=== PATIENT | male | born 1935 | race Caucasian/White ===

== ENCOUNTER 2020-07-18 11:23 | Emergency (ER) | payer MEDICARE, BC ==
[2020-07-18 12:16] LABS: CHLORIDE,CL 100 mmol/L (98-107); SODIUM,NA 135 mmol/L (136-145)
--- NOTE | 2020-07-18 12:51 | EDM.PDOC ---
ED HPI GENERAL MEDICAL PROBLEM - General Chief Complaint: Neurological Problem Stated Complaint: syncope Time Seen by Provider: 07/18/20 11:36 Source of Information: Reports: Patient, EMS, Family History Limitations: Reports: Other (Patient does not recall having the episode at home) - History of Present Illness INITIAL COMMENTS - FREE TEXT/NARRATIVE: Patient sent here for evaluation after having an episode at home where he became distant/would not focus on family/ and at times rolled eyes up/back and was minimally responsive. 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 Is on Eliquis. No SOB/chest pain. Family member did take patient's pulse and counted out a pulse of 40. BP also low at that time. Was having usual day up until that time. Sitting at table eating/taking daily meds when this happened. No other reported change. Patient says he feels fine now. No new complaints during ROS. - Related Data Allergies Allergy/AdvReac Type Severity Reaction Status Date / Time duloxetine Allergy Other Verified 07/18/20 12:37 Home Meds: Home Meds Apixaban [Eliquis] 5 mg PO BID 07/18/20 [History] Aspirin [Halfprin] 81 mg PO DAILY 07/18/20 [History] Carbidopa/Levodopa [Carbidopa-Levo ER 25-100] 1 each PO DAILY@0700,1130,1630 07/18/20 [History] Carbidopa/Levodopa [Carbidopa-Levo ER 50-200] 1 tab PO DAILY@02,19 07/18/20 [History] Diclofenac Sodium [Voltaren 1% Gel] 1 applic TOP QID PRN 07/18/20 [History] Donepezil HCl [Aricept] 10 mg PO DAILY 07/18/20 [History] Fish Oil/[place]-3 Fatty Acids [Fish Oil 1,000 MG] 1 each PO DAILY 07/18/20 [History] Levodopa [Inbrija] 42 mg IH 5XDAY PRN 07/18/20 [History] Levothyroxine [Synthroid] 100 mcg PO ACBREAKFAST 07/18/20 [History] Multivitamin [Multi-Vitamin Daily] 1 each PO DAILY 07/18/20 [History] Sertraline [Zoloft] 50 mg PO DAILY 07/18/20 [History] allopurinoL [Zyloprim] 100 mg PO DAILY 07/18/20 [History] atorvaSTATin [Lipitor] 40 mg PO BEDTIME 07/18/20 [History] carvediloL [Carvedilol] 3.125 mg PO DAILY 07/18/20 [History] levETIRAcetam [Keppra] 500 mg PO BID 07/18/20 [History] Past Medical History HEENT History: Reports: Hard of Hearing Cardiovascular History: Reports: Blood Clots/VTE/DVT, High Cholesterol, Hypertension Musculoskeletal History: Reports: Arthritis, Back Pain, Chronic, Gout, Osteoarthritis Neurological History: Reports: Parkinson's Psychiatric History: Reports: Dementia, Depression ED ROS GENERAL - Review of Systems Review Of Systems: Comprehensive ROS is negative, except as noted in HPI. HEENT: Reports: Hearing Loss ED EXAM, GENERAL - Physical Exam Exam: See Below Exam Limited By: No Limitations General Appearance: Alert, WD/WN, No Apparent Distress Eye Exam: Bilateral Eye: EOMI, PERRL (small pupils/3mm) Ears: Normal External Exam, Hearing Grossly Normal (is hard of hearing and does not have hearing aids in place) Nose: No: Nasal Deformity, Nasal Swelling, Nasal Drainage Throat/Mouth: Normal Lips, Normal Voice, No Airway Compromise Head: Atraumatic, Normocephalic Neck: Supple Respiratory/Chest: No Respiratory Distress, Lungs Clear, Normal Breath Sounds, No Accessory Muscle Use Cardiovascular: Normal Peripheral Pulses, Regular Rate, Rhythm, No Edema, No Murmur GI/Abdominal: Normal Bowel Sounds, Soft, Non-Tender, No Distention (Male) Exam: Deferred Rectal (Males) Exam: Deferred Back Exam: No: Muscle Spasm Extremities: Non-Tender, No Pedal Edema, Normal Capillary Refill Neurological: Alert, Oriented, Other (equal tone/strength bilaterally) Psychiatric: Normal Affect, Normal Mood Skin Exam: Warm, Dry, Intact #1 Interpretation EKG Date: 07/18/20 Time: 11:44 Rhythm: NSR Rate (Beats/Min): 66 [place]: Normal P-Wave: Present QRS: Normal ST-T: Normal QT: Normal (Occ. PVCs) Course - Vital Signs Last Recorded V/S: Last Vital Signs Temp 36.3 C 07/18/20 11:52 Pulse 73 07/18/20 11:52 Resp 15 07/18/20 11:52 BP 113/50 L 07/18/20 11:52 Pulse Ox 96 07/18/20 11:52 - Orders/Labs/Meds Orders: Active Orders 24 hr Category Date Time Status EKG Documentation Completion [RC] ASDIRECTED Care 07/18/20 11:35 Active Head wo Cont [CT] Stat Exams 07/18/20 11:29 Taken UA W/MICROSCOPIC [URIN] Stat Lab 07/18/20 11:34 Ordered Labs: Laboratory Tests 07/18/20 07/18/20 07/18/20 Range/Units 11:45 11:45 11:45 WBC 7.3 (4.0-10.2) K/uL RBC 3.87 L (4.33-5.41) M/uL Hgb 12.5 L (13.1-16.8) g/dL Hct 37.0 L (39.0-49.0) % MCV 95.6 (84.0-98.0) fL MCH 32.3 (28.2-33.3) pg MCHC 33.8 (31.7-36.0) g/dL RDW 12.6 (11.2-14.1) % Plt Count 255 (150-350) K/uL Neut % (Auto) 58.6 (45.0-80.0) % Lymph % (Auto) 25.6 (10.0-50.0) % [place] % (Auto) 12.6 (2.0-14.0) % Eos % (Auto) 2.9 (0.0-5.0) % Baso % (Auto) 0.3 (0.0-2.0) % Neut # (Auto) 4.29 (1.40-7.00) K/uL Lymph # (Auto) 1.87 (0.50-3.50) K/uL [place] # (Auto) 0.92 (0.00-1.00) K/uL Eos # (Auto) 0.21 (0.00-0.50) K/uL Baso # (Auto) 0.02 (0.00-0.20) K/uL D-Dimer, Quantitative (0-400) ng/mL Sodium 135 L (136-145) mmol/L Potassium 4.2 (3.5-5.1) mmol/L Chloride 100 (98-107) mmol/L Carbon Dioxide 26.6 (21.0-32.0) mmol/L BUN 19 H (7-18) mg/dL Creatinine 0.91 (0.51-1.17) mg/dL Est Cr Clr Drug Dosing TNP Estimated GFR (MDRD) > 60 mL/min Glucose 120 H (70-99) mg/dL Lactic Acid 1.5 (0.4-2.0) mmol/L Calcium 9.3 (8.5-10.1) mg/dL Magnesium 1.8 (1.8-2.4) mg/dL Total Bilirubin 0.4 (0.2-1.0) mg/dL AST 24 (15-37) U/L ALT 15 (12-78) U/L Alkaline Phosphatase 63 (46-116) IU/L Troponin I 0.000 (0.000-0.056) ng/mL NT-Pro-B Natriuret Pep 61 (0-125) pg/mL Total Protein 6.8 (6.4-8.2) g/dL Albumin 3.8 (3.4-5.0) g/dL 07/18/20 Range/Units 11:45 WBC (4.0-10.2) K/uL RBC (4.33-5.41) M/uL Hgb (13.1-16.8) g/dL Hct (39.0-49.0) % MCV (84.0-98.0) fL MCH (28.2-33.3) pg MCHC (31.7-36.0) g/dL RDW (11.2-14.1) % Plt Count (150-350) K/uL Neut % (Auto) (45.0-80.0) % Lymph % (Auto) (10.0-50.0) % [place] % (Auto) (2.0-14.0) % Eos % (Auto) (0.0-5.0) % Baso % (Auto) (0.0-2.0) % Neut # (Auto) (1.40-7.00) K/uL Lymph # (Auto) (0.50-3.50) K/uL [place] # (Auto) (0.00-1.00) K/uL Eos # (Auto) (0.00-0.50) K/uL Baso # (Auto) (0.00-0.20) K/uL D-Dimer, Quantitative < 100 (0-400) ng/mL Sodium (136-145) mmol/L Potassium (3.5-5.1) mmol/L Chloride (98-107) mmol/L Carbon Dioxide (21.0-32.0) mmol/L BUN (7-18) mg/dL Creatinine (0.51-1.17) mg/dL Est Cr Clr Drug Dosing Estimated GFR (MDRD) mL/min Glucose (70-99) mg/dL Lactic Acid (0.4-2.0) mmol/L Calcium (8.5-10.1) mg/dL Magnesium (1.8-2.4) mg/dL Total Bilirubin (0.2-1.0) mg/dL AST (15-37) U/L ALT (12-78) U/L Alkaline Phosphatase (46-116) IU/L Troponin I (0.000-0.056) ng/mL NT-Pro-B Natriuret Pep (0-125) pg/mL Total Protein (6.4-8.2) g/dL Albumin (3.4-5.0) g/dL - Re-Assessments/Exams Free Text/Narrative Re-Assessment/Exam: 07/18/20 15:51 CT/EKG/Labs performed. Overall unremarkable. No return of symptoms during ER stay. Patient continued to feel "normal". Given that family noted the low BP and slow heart rate, previous episode may have been cardiac in origin. Observation stay offered to family and patient. He wished to go home. Family is to continue to observe for changes. If any similar episodes are noted they are to check BP and pulse. If this repeats itself patient may benefit from Holter to look for arrhythmias/bradycardia. Is on Carvedilol. Will have family hold that medication if another episode is observed. To follow up otherwise as needed if he has no recurrence and continues to do well. Departure - Departure Time of Disposition: 12:47 Disposition: Home, Self-Care 01 Condition: Good Clinical Impression: Syncope Qualifiers: Syncope type: unspecified Qualified Code(s): R55 - Syncope and collapse - Discharge Information *PRESCRIPTION DRUG MONITORING PROGRAM REVIEWED*: Not Applicable *COPY OF PRESCRIPTION DRUG MONITORING REPORT IN PATIENT GARRET: Not Applicable Instructions: Bradycardia, Adult, Hypotension, Syncope Referrals: PCP,Unknown [Primary Care Provider] - Forms: ED Department Discharge Additional Instructions: Observe closely over the next days and see if symptoms return or if other new symptoms develop. Hold Carvedilol if symptoms return as that can cause low blood pressure and heart rate. Follow up as needed if you observe any problems. Take blood pressure and pulse if you start experiencing the symptoms again. Further evaluation such as Holter monitor may need to be considered if symptoms return. Sepsis Event Note (ED) - Evaluation Sepsis Screening Result: No Definite Risk - Focused Exam Vital Signs: Vital Signs Temp Pulse Resp BP Pulse Ox 07/18/20 11:52 36.3 C 73 15 113/50 L 96 - My Orders Last 24 Hours: My Active Orders 07/18/20 11:29 Head wo Cont [CT] Stat 07/18/20 11:34 UA W/MICROSCOPIC [URIN] Stat 07/18/20 11:35 EKG Documentation Completion [RC] ASDIRECTED - Assessment/Plan Last 24 Hours: My Active Orders 07/18/20 11:29 Head wo Cont [CT] Stat 07/18/20 11:34 UA W/MICROSCOPIC [URIN] Stat 07/18/20 11:35 EKG Documentation Completion [RC] ASDIRECTED
== END 2020-07-18 13:05 | disposition home or self-care (01) ==
LOC: LL.ED 11:23
DX: R55 Syncope and collapse (principal); E78.00 Pure hypercholesterolemia, unspecified; I10 Essential (primary) hypertension; M10.9 Gout, unspecified; F03.90 Unspecified dementia, unspecified severity, without behavioral disturbance, psychotic disturbance, mood disturbance, and anxiety; G20 Parkinson's disease; M19.90 Unspecified osteoarthritis, unspecified site; Z79.82 Long term (current) use of aspirin; Z79.01 Long term (current) use of anticoagulants; Z88.8 Allergy status to other drugs, medicaments and biological substances; Z79.899 Other long term (current) drug therapy; Z86.718 Personal history of other venous thrombosis and embolism
CPT/HCPCS: 36415; 70450; 80053; 83605; 83735; 83880; 84484; 85025; 85379; 93005; 93010; 99284; 99285-25

== ENCOUNTER 2023-11-29 15:26 | Emergency (ER) | payer BC, MEDICARE ==
[2023-11-29] MEDS: methylPREDNISolone Sodium Succinate 125 MG/2 ML SDV IVPUSH ONE (15:37)
[2023-11-29] MEDS: Albuterol/Ipratropium 3.0-0.5 MG/3 ML Neb Soln NEB ONE (15:39)
[2023-11-29] MEDS ORDERED: Sodium Chloride 0.9% 10 ML Syringe FLUSH PRN (15:42)
[2023-11-29 15:47] LABS: BASOPHILS ABSOLUTE AUTO 0.01 K/uL (0.00-0.20); BASOPHILS PERCENT AUTO 0.3 % (0.0-2.0); EOSINOPHILS ABSOLUTE AUTO 0.01 K/uL (0.00-0.50); EOSINOPHILS PERCENT AUTO 0.3 % (0.0-5.0); HEMATOCRIT 36.6 % (39.0-49.0); HEMOGLOBIN 12.3 g/dL (13.1-16.8); LYMPHOCYTES ABSOLUTE AUTO 0.22 K/uL (0.50-3.50); LYMPHOCYTES PERCENT AUTO 5.5 % (10.0-50.0); MEAN CORPUSCULAR HEMOGLOBIN 32.5 pg (28.2-33.3); MEAN CORPUSCULAR HGB CONC 33.6 g/dL (31.7-36.0); MEAN CORPUSCULAR VOLUME 96.8 fL (84.0-98.0); MONOCYTES ABSOLUTE AUTO 0.08 K/uL (0.00-1.00); NEUTROPHILS ABSOLUTE AUTO 3.65 K/uL (1.40-7.00); NEUTROPHILS PERCENT AUTO 91.9 % (45.0-80.0); PLATELET COUNT,PLT 247 K/uL (150-350); RED BLOOD CELL COUNT 3.78 M/uL (4.33-5.41)
[2023-11-29] MEDS: Albuterol/Ipratropium 3.0-0.5 MG/3 ML Neb Soln ONE (15:59)
[2023-11-29] MEDS: Sodium Chloride 0.9% 1,000 ML IV ONE (16:05)
[2023-11-29] MEDS: cefTRIAXone 1 GM in Sodium Chloride 0.9% 100 ML IV ONE ×2 (16:08→16:36)
[2023-11-29 16:13] LABS: APPEARANCE,URINE CLEAR; BILIRUBIN,URINE NEGATIVE (NEGATIVE); COLOR,URINE YELLOW; GLUCOSE,URINE NEGATIVE (NEGATIVE); KETONES,URINE TRACE mg/dL (NEGATIVE); LEUKOCYTE ESTERASE,URINE NEGATIVE (NEGATIVE); NITRITE,URINE NEGATIVE (NEGATIVE); OCCULT BLOOD,URINE TRACE-INTACT (NEGATIVE); PH,URINE 5.5 (5.0-9.0); PROTEIN,URINE 100 mg/dL (NEGATIVE); UROBILINOGEN,URINE 0.2 E.U./dL (0.2-1.0)
[2023-11-29 16:20] LABS: ALANINE AMINOTRANSFERASE,ALT 10 U/L (12-78); ALBUMIN 3.2 g/dL (3.4-5.0); ALKALINE PHOSPHATASE 82 IU/L (46-116); ASPARTATE AMNIOTRANSFERASE,AST 30 U/L (15-37); BILIRUBIN TOTAL 0.5 mg/dL (0.2-1.0); BLOOD UREA NITROGEN,BUN 25 mg/dL (7-18); CALCIUM 9.3 mg/dL (8.5-10.1); CARBON DIOXIDE,CO2 26.4 mmol/L (21.0-32.0); CHLORIDE,CL 97 mmol/L (98-107); CREATININE 1.25 mg/dL (0.51-1.17); GLUCOSE RANDOM 139 mg/dL (70-99); MAGNESIUM 1.5 mg/dL (1.8-2.4); POTASSIUM,K 3.8 mmol/L (3.5-5.1); PRO B-TYPE NATRIUR PEPT,BNPPRO 782 pg/mL (0-125); PROTEIN TOTAL,TP 6.6 g/dL (6.4-8.2); SODIUM,NA 133 mmol/L (136-145)
[2023-11-29 16:23] LABS: ANION GAP 13.4 meq/L (7-15); ESTIMATED GFR 55 mL/min (>=60)
[2023-11-29 16:23] LABS: CORONAVIRUS COVID-19 NAA NEGATIVE (NEGATIVE); INFLUENZA A NAA NEGATIVE (NEGATIVE); INFLUENZA B NAA NEGATIVE (NEGATIVE); RESPIRATORY SYNCYTIAL VIR NAA NEGATIVE (NEGATIVE)
[2023-11-29 16:28] LABS: INR 1.1 (0.9-1.1); PROTHROMBIN TIME 10.8 SEC (9.0-11.1)
[2023-11-29 16:36] LABS: AMORPHOUS SEDIMENT,URINE FEW /HPF (0/HPF); BACTERIA,URINE NOT SEEN /HPF (NONE TO FEW); EPITHELIAL CELLS,URINE RARE /LPF; MUCUS,URINE NOT SEEN /LPF (NEGATIVE); WBC,URINE 0-5 /HPF
[2023-11-29 16:45] LABS: PTT,PARTIAL THROMBOPLSTIN TIME 29.2 SEC (23.6-29.8)
[2023-11-29] MEDS: Magnesium Sulfate/Water 2 GM in Premix Bag 1 BAG IV ONE (16:50)
== END 2023-11-29 18:10 ==
LOC: LL.ED 15:26
DX: J18.9 Pneumonia, unspecified organism (principal); E83.42 Hypomagnesemia; I10 Essential (primary) hypertension; E78.00 Pure hypercholesterolemia, unspecified; Z87.891 Personal history of nicotine dependence; Z79.82 Long term (current) use of aspirin; Z79.01 Long term (current) use of anticoagulants; Z79.899 Other long term (current) drug therapy; Z88.8 Allergy status to other drugs, medicaments and biological substances
CPT/HCPCS: 0241U; 36415; 71045; 80053; 81001; 83605; 83735; 83880; 84484; 85025; 85379; 85610; 85730; 86140; 87040; 93005; 94640; 96365; 96367; 96375; 99285-25; C1758; J0696; J2919; J3475; J3490; J7030; J7620-GY

== ENCOUNTER 2023-12-13 08:43 | Inpatient (IN) | payer MEDICARE ==
[2023-12-13] MEDS: LEVODOPA PO ONE (13:05)
[2023-12-13] MEDS: CARBIDOPA PO ONE (13:05)
[2023-12-13] MEDS ORDERED: Nitroglycerin 0.4 MG Tab.SL SL PRN (14:45)
[2023-12-13] MEDS ORDERED: Non-Formulary Medication 1 Each (Ipratropium Bromide [Ipratropium Bromide] 15 ML Spray) INH PRN (14:45)
[2023-12-13] MEDS ORDERED: LEVODOPA 42 MG INH PRN (14:45)
[2023-12-13] MEDS ORDERED: Non-Formulary Medication 1 Each (Prednisone [Prednisone] 10 MG Tablet) PO SCH (14:45)
[2023-12-13] MEDS ORDERED: Albuterol 6.7 GM Inhaler INH PRN (15:13)
[2023-12-13] MEDS ORDERED: Atropine 1% Ophth Soln 5 ML Bottle SL PRN (15:23)
[2023-12-13] MEDS ORDERED: Polyvinyl Alcohol 1.4% Ophth Soln 15 ML Bottle EYEBOTH PRN (15:24)
[2023-12-13] MEDS ORDERED: Triamcinolone Acetonide 0.1% Crm 15 GM Tube TOP PRN (15:28)
[2023-12-13] MEDS: Carbidopa/Levodopa 25-100 MG Tab PO SCH (16:14)
[2023-12-13] MEDS: Apixaban 5 MG Tab PO SCH (17:46)
[2023-12-13] MEDS: levETIRAcetam 500 MG Tab PO SCH (17:47)
[2023-12-13] MEDS: Acetaminophen 650 MG Tab.ER PO SCH (17:49)
[2023-12-13] MEDS: Gabapentin 100 MG Cap PO SCH (17:51)
[2023-12-13] MEDS: Multivitamin Tab PO SCH (17:52)
[2023-12-13] MEDS: atorvaSTATin 40 MG Tab PO SCH (19:51)
[2023-12-13] MEDS: Carbidopa/Levodopa 50-200 MG Tab.ER PO SCH (20:48)
[2023-12-14] MEDS: Gabapentin 100 MG Cap PO SCH (01:57)
[2023-12-14] MEDS: Midodrine 5 MG Tab PO SCH (07:45)
[2023-12-14] MEDS: Levothyroxine 100 MCG Tab PO SCH (07:45)
[2023-12-14] MEDS ORDERED: Aspirin 81 MG Tab.EC PO SCH (08:00)
[2023-12-14] MEDS: Donepezil 10 MG Tab PO SCH (08:22)
[2023-12-14] MEDS: Aspirin 81 MG Tab.Chew PO SCH (08:23)
[2023-12-14] MEDS: predniSONE 20 MG Tab PO SCH (08:26)
[2023-12-14] MEDS: Finasteride 5 MG Tab PO SCH (08:36)
[2023-12-14] MEDS: Sertraline 50 MG Tab PO SCH (08:38)
[2023-12-14] MEDS: Allopurinol 100 MG Tab PO SCH (08:56)
[2023-12-14] MEDS: Albuterol/Ipratropium 3.0-0.5 MG/3 ML Neb Soln INH PRN (10:32)
[2023-12-14] MEDS: Albuterol/Ipratropium 3.0-0.5 MG/3 ML Neb Soln INH SCH (13:51)
[2023-12-15] MEDS: LEVODOPA 42 MG INH SCH (08:45)
[2023-12-15] MEDS: Midodrine 5 MG Tab PO PRN (09:45)
[2023-12-18] MEDS: LEVODOPA 42 MG INH PRN (07:55)
[2023-12-19] MEDS ORDERED: guaiFENesin 600 MG Tab.ER PO PRN (18:09)
[2023-12-20 07:03] LABS: BASOPHILS ABSOLUTE AUTO 0.02 K/uL (0.00-0.20); BASOPHILS PERCENT AUTO 0.2 % (0.0-2.0); EOSINOPHILS PERCENT AUTO 0.9 % (0.0-5.0); HEMATOCRIT 36.3 % (39.0-49.0); HEMOGLOBIN 12.2 g/dL (13.1-16.8); LYMPHOCYTES PERCENT AUTO 9.8 % (10.0-50.0); MEAN CORPUSCULAR HEMOGLOBIN 32.4 pg (28.2-33.3); MEAN CORPUSCULAR HGB CONC 33.6 g/dL (31.7-36.0); MEAN CORPUSCULAR VOLUME 96.5 fL (84.0-98.0); MONOCYTES ABSOLUTE AUTO 0.77 K/uL (0.00-1.00); MONOCYTES PERCENT AUTO 6.8 % (2.0-14.0); NEUTROPHILS ABSOLUTE AUTO 9.29 K/uL (1.40-7.00); NEUTROPHILS PERCENT AUTO 82.3 % (45.0-80.0); PLATELET COUNT,PLT 435 K/uL (150-350); RED BLOOD CELL COUNT 3.76 M/uL (4.33-5.41); WHITE BLOOD CELL COUNT,WBC 11.3 K/uL (4.0-10.2)
[2023-12-20 07:16] LABS: ANION GAP 8.8 meq/L (7-15); CALCIUM 9.1 mg/dL (8.5-10.1); CARBON DIOXIDE,CO2 28.2 mmol/L (21.0-32.0); CREATININE 0.73 mg/dL (0.51-1.17); EST CRCL DRUG DOSING (CG) 61.62 mL/min
[2023-12-20] MEDS: Gabapentin 100 MG Cap PO SCH (08:31)
[2023-12-21] MEDS: Amoxicillin/Clavulanate K 875-125 MG Tab PO SCH (08:35)
[2023-12-21] MEDS: predniSONE 20 MG Tab PO SCH (08:41)
[2023-12-24] MEDS: guaiFENesin 100 MG/5 ML Soln 10 ML UD Cup PO PRN (19:19)
[2023-12-24] MEDS: Melatonin 3 MG Tab PO PRN (20:39)
[2023-12-25 07:57] LABS: BASOPHILS ABSOLUTE AUTO 0.04 K/uL (0.00-0.20); BASOPHILS PERCENT AUTO 0.4 % (0.0-2.0); EOSINOPHILS ABSOLUTE AUTO 0.32 K/uL (0.00-0.50); HEMATOCRIT 37.4 % (39.0-49.0); HEMOGLOBIN 12.2 g/dL (13.1-16.8); LYMPHOCYTES ABSOLUTE AUTO 1.52 K/uL (0.50-3.50); LYMPHOCYTES PERCENT AUTO 14.2 % (10.0-50.0); MEAN CORPUSCULAR HEMOGLOBIN 31.9 pg (28.2-33.3); MEAN CORPUSCULAR HGB CONC 32.6 g/dL (31.7-36.0); MEAN CORPUSCULAR VOLUME 97.7 fL (84.0-98.0); MONOCYTES ABSOLUTE AUTO 0.76 K/uL (0.00-1.00); MONOCYTES PERCENT AUTO 7.1 % (2.0-14.0); NEUTROPHILS PERCENT AUTO 75.3 % (45.0-80.0); PLATELET COUNT,PLT 346 K/uL (150-350); RED BLOOD CELL COUNT 3.83 M/uL (4.33-5.41); RED CELL DISTRIBUTION WIDTH 13.8 % (11.2-14.1); WHITE BLOOD CELL COUNT,WBC 10.7 K/uL (4.0-10.2)
[2023-12-25 08:12] LABS: ANION GAP 5.6 meq/L (7-15); CALCIUM 9.5 mg/dL (8.5-10.1); CARBON DIOXIDE,CO2 31.4 mmol/L (21.0-32.0); CREATININE 0.74 mg/dL (0.51-1.17); EST CRCL DRUG DOSING (CG) 61.22 mL/min; POTASSIUM,K 4.7 mmol/L (3.5-5.1)
[2023-12-25] MEDS ORDERED: Carbidopa/Levodopa 50-200 MG Tab.ER PO PRN (13:00)
[2023-12-25] MEDS: Gabapentin 100 MG Cap PO SCH (17:27)
[2023-12-25] MEDS: Carbidopa/Levodopa 50-200 MG Tab.ER PO SCH (20:49)
[2023-12-25] MEDS ORDERED: Carbidopa/Levodopa 50-200 MG Tab.ER PO SCH (21:00)
[2023-12-27] MEDS: Mineral Oil/Petrolatum/Phenylephrine/Shark Liver Oil Oint 57 GM Tube RECTAL PRN (00:42)
[2023-12-27] MEDS: Diclofenac Sodium 1% Gel 100 GM Tube TOP PRN (01:41)
[2023-12-28 07:23] LABS: BASOPHILS ABSOLUTE AUTO 0.04 K/uL (0.00-0.20); BASOPHILS PERCENT AUTO 0.4 % (0.0-2.0); EOSINOPHILS ABSOLUTE AUTO 0.42 K/uL (0.00-0.50); HEMATOCRIT 34.5 % (39.0-49.0); HEMOGLOBIN 11.1 g/dL (13.1-16.8); LYMPHOCYTES ABSOLUTE AUTO 1.56 K/uL (0.50-3.50); LYMPHOCYTES PERCENT AUTO 14.7 % (10.0-50.0); MEAN CORPUSCULAR HEMOGLOBIN 31.6 pg (28.2-33.3); MEAN CORPUSCULAR HGB CONC 32.2 g/dL (31.7-36.0); MEAN CORPUSCULAR VOLUME 98.3 fL (84.0-98.0); MONOCYTES ABSOLUTE AUTO 0.74 K/uL (0.00-1.00); NEUTROPHILS ABSOLUTE AUTO 7.84 K/uL (1.40-7.00); NEUTROPHILS PERCENT AUTO 73.9 % (45.0-80.0); PLATELET COUNT,PLT 327 K/uL (150-350); RED BLOOD CELL COUNT 3.51 M/uL (4.33-5.41); RED CELL DISTRIBUTION WIDTH 14.1 % (11.2-14.1); WHITE BLOOD CELL COUNT,WBC 10.6 K/uL (4.0-10.2)
[2023-12-28] MEDS: predniSONE 5 MG Tab PO SCH (08:08)
== END 2023-12-29 10:30 | disposition home or self-care (01) | DRG 947 ==
LOC: LL.SWG 11:15
PROVIDERS: ADMIT Physician Assistant; ATTEND Nurse Practitioner Family
DX: R53.81 Other malaise (principal); J69.0 Pneumonitis due to inhalation of food and vomit; F03.93 Unspecified dementia, unspecified severity, with mood disturbance; G90.3 Multi-system degeneration of the autonomic nervous system; E78.00 Pure hypercholesterolemia, unspecified; J44.9 Chronic obstructive pulmonary disease, unspecified; I12.9 Hypertensive chronic kidney disease with stage 1 through stage 4 chronic kidney disease, or unspecified chronic kidney disease; N18.9 Chronic kidney disease, unspecified; M19.90 Unspecified osteoarthritis, unspecified site; M10.9 Gout, unspecified; G89.29 Other chronic pain; G20.A2 Parkinson's disease without dyskinesia, with fluctuations; M48.061 Spinal stenosis, lumbar region without neurogenic claudication; Z88.8 Allergy status to other drugs, medicaments and biological substances; Z79.01 Long term (current) use of anticoagulants; Z79.82 Long term (current) use of aspirin; Z79.899 Other long term (current) drug therapy
CPT/HCPCS: 36415; 71045; 71046; 80048; 84145; 85025; 92526-GN; 92610-GN; 94640; 97110-GO; 97110-GP; 97162-GP; 97165-GO; 97530-GO; 97530-GP; 97535-GO; A9270-GY; J7512; J7620-GY